=== PATIENT | male | born 1955 | race Caucasian/White ===

== ENCOUNTER 2022-05-25 02:11 | Day surgery (SDC) | payer MEDICARE, BC, SELFPAY ==
--- NOTE | 2022-05-24 17:02 | PM.HPGS ---
History of Present Illness History of Present Illness Consent: Risks, benefits, and alternatives have been discussed and questions answered. Patient agrees to proceed with procedure. Chief complaint: hx colon polyps Narrative: Oliver Limon is a 67 year old male referred for colon cancer screening. Five years ago he had a tubular adenoma removed at the time of a colonoscopy in [facility]. he recently has had a great deal of tightness in his abdomen from time to time. A CT scan was done showing inguinal and umbilical hernias. Review of Systems Review of Systems: All systems reviewed & are unremarkable except as noted in HPI and below PMFSH Past Medical History Medical History Back fracture HLD (hyperlipidemia) Normal colonoscopy Surgical History Surgical History H/O nasal septoplasty History of hernia repair History of open reduction and internal fixation (ORIF) procedure History of shoulder surgery History of vertebroplasty S/P appy Status post epidural steroid injection Social History Social History Smoking packs per day: 1.5 Smoking cigarettes per day: 30.0 Years smoked: 50 Smoking pack-years: 75.00 Smoking status: Former smoker Substance use type: does not use Living arrangements: with family Spiritual care concerns: No Meds Home Medications and Allergies Home Medications Medication Instructions Recorded Confirmed Type atorvastatin 20 mg tablet 20 mg PO DAILY 04/06/22 05/25/22 History meloxicam 15 mg tablet 15 mg PO DAILY 04/06/22 05/25/22 History pantoprazole 20 mg tablet,delayed 20 mg PO QAM 04/06/22 05/25/22 History release Allergies Allergy/AdvReac Type Severity Reaction Status Date / Time tetracycline Allergy Other Verified 05/25/22 06:39 Exam Resp: Auscultation: clear to auscultation bilaterally Cardio: Rate: regular rate Rhythm: regular rhythm GI: GI Palp: Yes Soft to palpation and No Tenderness to palpation present (GI) Assessment and Plan Assessment and plan (1) Colon cancer screening: Code(s): Z12.11 - Encounter for screening for malignant neoplasm of colon Status: Acute Assessment and Plan: Colonoscopy with possible biopsy or polypectomy or cautery or injection of substances.
[2022-05-25 06:41] VITALS: BP 116/78; PULSE 66; RESP 18; TEMP 36; O2SAT 95
[2022-05-25] MEDS: LACTATED RINGERS 1,000 ML 150 ML IV CONT (06:48)
--- NOTE | 2022-05-25 07:45 | WPDANESEPPF ---
Anes - Initial Pre Proc Eval Procedure: Operation Date: 05/25/22 08:00 Proposed Procedures p Screening Colonoscopy - Anthony Felton MD Date/Time: 05/25/22 07:45 Surgeon: Anthony Felton MD Pre Op Diagnosis: hx colon polyps Patient Data Age: 67 Gender: M Height: 1.85 m Weight: 84.7 kg Last Vital Signs Temp 96.8 F L 05/25/22 06:41 Pulse 66 05/25/22 06:41 Resp 18 05/25/22 06:41 BP 116/78 05/25/22 06:41 Pulse Ox 95 05/25/22 06:41 O2 Del Method Room Air 05/25/22 06:41 Allergies Allergy/AdvReac Type Severity Reaction Status Date / Time tetracycline Allergy Other Verified 05/25/22 06:39 Home Medications Medication Instructions Recorded Confirmed Type atorvastatin 20 mg tablet 20 mg PO DAILY 04/06/22 05/25/22 History meloxicam 15 mg tablet 15 mg PO DAILY 04/06/22 05/25/22 History pantoprazole 20 mg tablet,delayed 20 mg PO QAM 04/06/22 05/25/22 History release Patient hx anesthesia problems: none Family hx anesthesia problems: none Results Review: All pre-operative results and documents have been reviewed as part of the pre-operative evaluation. [facility], [facility] Past Medical History Medical History (Updated 05/24/22 @ 17:03 by Anthony Felton MD) Back fracture HLD (hyperlipidemia) Normal colonoscopy Surgical History Surgical History (Updated 04/06/22 @ 12:59 by Pradeep Deluna) H/O nasal septoplasty History of hernia repair History of open reduction and internal fixation (ORIF) procedure History of shoulder surgery History of vertebroplasty S/P appy Status post epidural steroid injection Social History Social History Smoking packs per day: 1.5 Smoking cigarettes per day: 30.0 Years smoked: 50 Smoking pack-years: 75.00 Smoking status: Former smoker Substance use type: does not use Living arrangements: with family Spiritual care concerns: No Anes - Eval Final PreProcedure Day of Procedure 05/25/22 07:45 Patient weight: normal Heart: regular rate and rhythm Lungs: clear to auscultation Airway: Mallampati scale class II Neurological: alert and oriented Last oral intake: >/= 8 hours ASA classification: II Emergent: no Anesthetic plan: proceed Anesthesia type and monitoring: general GIVS and standard monitoring Results Review: All pre-operative results and documents have been reviewed as part of the pre-operative evaluation. Informed Consent: The patient's anesthetic plan and its attendant risks and benefits were discussed with the patient/family/POA. Questions were solicited and answers provided to the satisfaction of the patient/family/POA.
[2022-05-25 08:21] VITALS: BP 102/67; PULSE 74; RESP 13; O2SAT 94
[2022-05-25 08:31] VITALS: BP 110/73; PULSE 66; RESP 19; O2SAT 95
[2022-05-25 08:41] VITALS: BP 109/73; PULSE 58; RESP 19; O2SAT 96
== END 2022-05-25 08:54 | disposition home or self-care (01) ==
PROVIDERS: Visit Provider Internal Medicine Gastroenterology
PROC: 0DJD8ZZ Inspection of Lower Intestinal Tract, Via Natural or Artificial Opening Endoscopic (ICD-10-PCS; CPT 45378; principal; 2022-05-25 08:00)
DX: Z12.11 Encounter for screening for malignant neoplasm of colon (principal); D12.3 Benign neoplasm of transverse colon; K51.40 Inflammatory polyps of colon without complications; K57.30 Diverticulosis of large intestine without perforation or abscess without bleeding; E78.5 Hyperlipidemia, unspecified; Z87.891 Personal history of nicotine dependence
CPT/HCPCS: 45380; 88305; J2704; J7120